=== PATIENT | male | born 1985 | race African-American/Black ===

== ENCOUNTER 2020-08-14 10:16 | Emergency (ER) | payer OTHER ==
[~2020-08-14] VITALS: Ht 180.3 cm; Wt 90.7 kg
[~2020-08-14 10:16] MED LIST: IMODIUM A-1 MG/7.5 M; IMODIUM A-D2 MG; OSEL75CA PO
[2020-08-14] MEDS ORDERED: KETO10TA2 PO (13:05)
[2020-08-14] MEDS ORDERED: SKELAXIN800 MG PO (13:05)
== END 2020-08-14 13:19 | disposition home or self-care (01) ==
LOC: ER 10:16 → EDSEX 10:43 → ER 13:19
DX: S20.212A Contusion of left front wall of thorax, initial encounter (principal); S20.211A Contusion of right front wall of thorax, initial encounter; M94.0 Chondrocostal junction syndrome [Tietze]; W18.39XA Other fall on same level, initial encounter; Y93.89 Activity, other specified; Y92.89 Other specified places as the place of occurrence of the external cause; Y99.8 Other external cause status

== ENCOUNTER 2021-02-18 21:25 | Emergency (ER) | payer OTHER ==
[~2021-02-18] VITALS: Ht 180.3 cm; Wt 90.7 kg
[~2021-02-18 21:25] MED LIST changes: +KETO10TA2 PO; +SKELAXIN800 MG PO
[2021-02-18] MEDS ORDERED: KETO10TA2 PO (23:25)
[2021-02-18] MEDS ORDERED: ORPHENADRINE C100 MG PO (23:25)
== END 2021-02-18 23:30 | disposition home or self-care (01) ==
LOC: ER 21:25
DX: M62.838 Other muscle spasm (principal); M54.2 Cervicalgia

== ENCOUNTER 2022-07-29 09:42 | Emergency (ER) | payer OTHER ==
[~2022-07-29] VITALS: Ht 180.3 cm; Wt 93.0 kg
[~2022-07-29 09:42] MED LIST changes: +ORPHENADRINE C100 MG PO
[2022-07-29] MEDS ORDERED: IMODIUM A-D2 M2 PO (10:05)
== END 2022-07-29 10:54 | disposition home or self-care (01) ==
LOC: ER 09:42
DX: R07.89 Other chest pain (principal)

== ENCOUNTER 2023-04-02 16:09 | Emergency (ER) | payer OTHER ==
[~2023-04-02] VITALS: Ht 180.3 cm; Wt 88.5 kg
[~2023-04-02 16:09] MED LIST changes: +IMODIUM A-D2 M2 PO
== END 2023-04-02 17:20 | disposition home or self-care (01) ==
LOC: ER 16:09
DX: R05.9 Cough, unspecified (principal)

== ENCOUNTER 2023-12-08 19:59 | Emergency (ER) | payer OTHER ==
[~2023-12-08] VITALS: Ht 180.3 cm; Wt 86.2 kg
== END 2023-12-08 21:03 | disposition home or self-care (01) ==
LOC: ER 20:01
DX: H60.8X2 Other otitis externa, left ear (principal)

== ENCOUNTER 2024-09-12 08:37 | Emergency (ER) | payer OTHER ==
[~2024-09-12] VITALS: Ht 180.3 cm; Wt 88.0 kg
[2024-09-12 08:58] VITALS: BP 129/75; O2SAT 99
[2024-09-12] MEDS ORDERED: FAMOtidine 10 MG/ML (4ML VIAL) IV ONE (09:30)
[2024-09-12] MEDS ORDERED: 0.9 % SODIUM CHLORIDE 500 ML IV ONE (09:30)
[2024-09-12 09:57] LABS: HEMATOCRIT 40.4 % (39.0-48.0); HEMOGLOBIN 13.9 g/dL (13-16.00); MEAN CELL VOLUME 86.6 fL (80.0-100.00); MEAN CORPUSCULAR HEMOGLOBIN 29.8 pg (27.00-32.0); MEAN CORPUSCULAR HGB CONC 34.4 g/dl (32.0-36.0); PLATELET COUNT 203 K/uL (150-450); RED BLOOD COUNT 4.67 M/uL (4.00-6.00); RED CELL DISTRIBUTION WIDTH 13.4 % (11.5-14.5)
[2024-09-12] MEDS ORDERED: PEPCID AC20 MG PO (11:35)
[2024-09-12] MEDS ORDERED: CLARITIN10 MG PO (11:50)
== END 2024-09-12 12:57 | disposition home or self-care (01) ==
LOC: ER 08:39
PROVIDERS: General Practice
DX: J00 Acute nasopharyngitis [common cold] (principal); Z20.822 Contact with and (suspected) exposure to COVID-19
CPT/HCPCS: 36415; 96365; 99282; J3490; J7042